=== PATIENT | female | born 1995 | race Caucasian/White ===

== ENCOUNTER 2016-08-27 23:03 | Emergency (ER) | payer MEDICAID ==
[2016-08-27 23:12] VITALS: BP 128/79; PULSE 94; RESP 16; TEMP 97.9; O2SAT 96
[2016-08-27 23:35] LABS: COLOR YELLOW; LEUKOCYTE ESTERASE,URINE 3+ (NEGATIVE); NITRITE,URINE NEGATIVE (NEGATIVE)
[2016-08-27] MEDS ORDERED: CEPHALEXIN 500MG PREPACK#4 BTL TAKEHOME ONE (23:37)
[2016-08-27] MEDS ORDERED: CEPHALEXIN 500 MG CAP PO ONE (23:37)
--- NOTE | 2016-08-27 23:37 | EDPHY ---
H & P Stated Complaint: burning with urination, suprapubic pain x2d, nausea Time Seen by Provider: 08/27/16 23:36 HPI/ROS: HPI CHIEF COMPLAINT: Dysuria HISTORY OF PRESENT ILLNESS: This patient very pleasant 20-year-old female, significant past medical history for anxiety and depression, and heroin abuse, presents to the emergency room with a 2 days of dysuria and suprapubic pain. She denies flank pain, vomiting high fever. She thinks she has a urinary tract infection. Past Medical History: Anxiety, depression, heroin abuse Past Surgical History: denies recent or pertinent surgical history Social History: Denies daily use of drugs alcohol tobacco products, lives locally in [place] Family History: Noncontributory ROS REVIEW OF SYSTEMS: A comprehensive 10 point review of systems is otherwise negative aside from elements mentioned in the history of present illness. Exam Constitutional triage nursing summary reviewed, vital signs reviewed, awake/ alert. Eyes normal conjunctivae and sclera, EOMI, PERRLA. HENT normal inspection, atraumatic, moist mucus membranes, no epistaxis, neck supple/ no meningismus, no raccoon eyes. Respiratory clear to auscultation bilaterally, normal breath sounds, no respiratory distress, no wheezing. Cardiovascular rate normal, regular rhythm, no murmur, no edema, distal pulses normal. Gastrointestinal soft, non-tender, no rebound, no guarding, normal bowel sounds, no distension, no pulsatile mass. Genitourinary no CVA tenderness. Musculoskeletal no midline vertebral tenderness, full range of motion, no calf swelling, no tenderness of extremities, no meningismus, good pulses, neurovascularly intact. Skin pink, warm, & dry, no rash, skin atraumatic. Neurologic awake, alert and oriented x 3, AAOx3, moves all 4 extremities equally, motor intact, sensory intact, CN II-XII intact, normal cerebellar, normal vision, normal speech. Psychiatric normal mood/affect. Heme/Lymph/Immune no lymphadenopathy. Differential Diagnosis: Includes but is not limited to in a particular order, UTI, cystitis, pyelonephritis Medical Decision Making: Patient here in emergency room appears well nontoxic afebrile no CVA pain no nausea or vomiting no abdominal pain except for some mild suprapubic pressure and dysuria think she has UTI. Will send a urinalysis. Abdomen is benign. Re-evaluation: Urinalysis result shows that she does have a UTI. She will be given 1st dose of Keflex here urine culture sent and Pyridium for home prescription for Keflex and Pyridium for home. She does understand if she develops any worsening symptoms includes worsening abdominal pain, fever, flank pain vomiting to return to the emergency room. Stay well-hydrated drink lots of fluids. Source: Patient - Personal History LMP (Females 10-55): 22-28 Days Ago Current Tetanus/Diphtheria Vaccine: Yes Current Tetanus Diphtheria and Acellular Pertussis (TDAP): Yes Tetanus Vaccine Date: ~2013 - Medical/Surgical History Hx Asthma: Yes Hx Chronic Respiratory Disease: No Hx Diabetes: No Hx Cardiac Disease: No Hx Renal Disease: No Hx Cirrhosis: No Hx Alcoholism: No Hx HIV/AIDS: No Hx Splenectomy or Spleen Trauma: No Other PMH: Exercise induced asthma, Heroin abuse, Vivien's, anemia, anxiety/ depression - Social History Smoking Status: Former smoker Constitutional: Initial Vital Signs Temperature (C) 36.6 C 08/27/16 23:04 Heart Rate 94 08/27/16 23:04 Respiratory Rate 16 08/27/16 23:04 Blood Pressure 128/79 H 08/27/16 23:04 O2 Sat (%) 96 08/27/16 23:04 O2 Delivery Mode Room Air Allergies/Adverse Reactions: epinephrine Allergy (Verified 08/27/16 23:13) gluten Allergy (Verified 08/27/16 23:13) peanut Allergy (Verified 08/27/16 23:13) Home Medications: Medication Instructions Recorded Bcp 08/27/16 Cephalexin [Keflex] 500 mg PO Q6H #28 cap 08/27/16 GABAPENTIN 08/27/16 KLONOPIN 08/27/16 Levothyroxine 08/27/16 Phenazopyridine HCl [Pyridium] 200 mg PO TID #6 tab 08/27/16 Suboxone 08/27/16 Medical Decision Making - Data Points Laboratory Results: 08/27/16 23:25 Urine Color YELLOW Urine Appearance HAZY Urine pH 5.0 (5.0-7.5) Ur Specific [place] 1.032 H (1.002-1.030) Urine Protein 1+ H (NEGATIVE) Urine Ketones TRACE H (NEGATIVE) Urine Blood NEGATIVE (NEGATIVE) Urine Nitrate NEGATIVE (NEGATIVE) Urine Bilirubin NEGATIVE (NEGATIVE) Urine Urobilinogen NEGATIVE EU EU (0.2-1.0) Ur Leukocyte Esterase 3+ H (NEGATIVE) Urine RBC 15-25 /hpf H /hpf (0-3) Urine WBC 50-182 /hpf H /hpf (0-3) Ur Epithelial Cells 1+ /lpf /lpf (NONE-1+) Urine Bacteria TRACE /hpf H /hpf (NONE SEEN) Urine Mucus TRACE /lpf /lpf (NONE-1+) Ur Culture Indicated? INDICATED H (NI) Urine Glucose NEGATIVE (NEGATIVE) Departure - Departure Disposition: Home, Routine, Self-Care Clinical Impression: Urinary tract infection Qualifiers: Urinary tract infection type: acute cystitis Hematuria presence: with hematuria Qualified Code(s): N30.01 - Acute cystitis with hematuria Condition: Good Instructions: Dysuria (ED), Urinary Tract Infection in Women (ED) Additional Instructions: 1. Stay well-hydrated drink lots of fluids. 2. take her Keflex prescription as prescribed 3. I have given you peridium this will turn your urine very [place]. Referrals: Patient,NotPresent [Primary Care Provider] - As per Instructions Prescriptions: Cephalexin [Keflex] 500 mg PO Q6H #28 cap Phenazopyridine HCl [Pyridium] 200 mg PO TID #6 tab
[2016-08-27 23:38] LABS: BACTERIA TRACE /hpf (NONE SEEN); MUCUS TRACE /lpf (NONE-1+); RBC,URINE 15-25 /hpf (0-3); WBC,URINE 50-182 /hpf (0-3)
[2016-08-28] MEDS ORDERED: PHENAZOPYRIDINE HCL 200 MG TAB PO ONE (00:01)
== END 2016-08-28 | disposition home or self-care (01) ==
DX: N30.01 Acute cystitis with hematuria (principal); B96.20 Unspecified Escherichia coli [E. coli] as the cause of diseases classified elsewhere; J45.909 Unspecified asthma, uncomplicated; Z87.891 Personal history of nicotine dependence; Z91.010 Allergy to peanuts

== ENCOUNTER 2017-10-01 17:45 | Emergency (ER) | payer MEDICAID ==
--- NOTE | 2017-10-01 18:20 | EDPHY ---
H & P Stated Complaint: episode of vaginal bleed after intercourse last night , pelvic pain since Time Seen by Provider: 10/01/17 18:19 HPI/ROS: HPI: This is a 21-year-old female who presents with Chief Complaint: episode of vaginal bleed after intercourse last night , pelvic pain since Location: Vaginal Quality: Trauma Duration: Last night Signs and Symptoms: no fever, no nausea, no vomiting, no hematemesis, no blood in stool, no abdominal bloating, no diarrhea, no back pain, no urinary symptoms , no vaginal discharge, no indigestion, no chest pain, no shortness of breath Timing: Acute, resolved Severity: Moderate Context: Patient reports that she was having vaginal sexual intercourse with her boyfriend yesterday evening when she felt a sudden, moderate, sharp pain in her vaginal canal followed by moderate amount of vaginal bleeding. She reports that she was not well lubricated at the time of penetration. Since that time she has some continued pain in the vaginal canal. Denies any difficulty urinating or defecating, she reports that there was only 1 episode of bleeding and none has reoccurred. LMP 1-2 weeks ago. Denies any concern for STDs; no vaginal discharge/pruritus. Modifying Factors: None Comment: ROS: see HPI Constitutional: No fever, no chills, no weight loss Eyes: No blurred vision Respiratory: No shortness of breath, no cough Cardiovascular: No chest pain, no palpitations Gastrointestinal: No nausea, no vomiting, no diarrhea, no hematemesis, no blood in stool Genitourinary: No dysuria, no blood in urine Extremities: No myalgias, no edema Neurologic: No weakness, no numbness Skin: No rashes, no petechiae Hematologic: No bruising, no bleeding MEDICAL/SURGICAL/SOCIAL HISTORY: Medical history: Exercise induced asthma, Heroin abuse, Vivien's, anemia, anxiety/depression Surgical history: Denies Social history: Student. CONSTITUTIONAL: awake and alert, no obvious distress HEENT: Atraumatic and normocephalic, PERRL, EOMI. Tympanic membranes clear. Oropharynx clear, no exudate and moist pink mucosa. Airway patent. No lymphadenopathy. No meningismus. Cardiovascular: Normal S1/S2, regular rate, regular rhythm, without murmur rub or gallop. PULMONARY/CHEST: Symmetrical and nontender. Clear to auscultation bilaterally. Good air movement. No accessory muscle usage. ABDOMEN: Soft, nondistended, nontender, no rebound, no guarding, no peritoneal signs, no masses or organomegaly. No CVAT. PELVIC: normal external genitalia, normal cervix, superficial abrasion noted at 12:00 position and vaginal canal; no deep laceration or active bleeding seen; cervical os was closed, no cervical motion tenderness, no adnexal mass, no discharge, no bleeding. The exam was performed with a contemporary or modern dancer. EXTREMITIES: 2/2 pulses, strength 5/5, no deformities, no clubbing, no cyanosis or edema. NEUROLOGICAL: no focal neuro deficits. GCS 15. SKIN: Warm and dry, no erythema. no rash. Good capillary refill. Source: Patient Exam Limitations: No limitations - Personal History LMP (Females 10-55): 8-14 Days Ago Current Tetanus Diphtheria and Acellular Pertussis (TDAP): Yes Tetanus Vaccine Date: ~2013 - Medical/Surgical History Hx Asthma: Yes Hx Chronic Respiratory Disease: No Hx Diabetes: No Hx Cardiac Disease: No Hx Renal Disease: No Hx Cirrhosis: No Hx Alcoholism: No Hx HIV/AIDS: No Hx Splenectomy or Spleen Trauma: No Other PMH: Exercise induced asthma, Heroin abuse, Vivien's, anemia, anxiety/ depression - Social History Smoking Status: Former smoker Constitutional: Initial Vital Signs Temperature (C) 36.8 C 10/01/17 17:54 Heart Rate 88 10/01/17 17:54 Respiratory Rate 16 10/01/17 17:54 Blood Pressure 132/59 H 10/01/17 17:54 O2 Sat (%) 97 10/01/17 17:54 O2 Delivery Mode Room Air Allergies/Adverse Reactions: epinephrine Allergy (Verified 08/27/16 23:13) gluten Allergy (Verified 08/27/16 23:13) peanut Allergy (Verified 08/27/16 23:13) Home Medications: Medication Instructions Recorded Bcp 08/27/16 GABAPENTIN 08/27/16 KLONOPIN 08/27/16 Levothyroxine 08/27/16 Suboxone 08/27/16 Ambien 10/01/17 Medical Decision Making ED Course/Re-evaluation: Labs and pelvic exam ordered Superficial abrasion seen on pelvic exam Patient has politely declined pelvic ultrasound as she is reassured that there is not a significant laceration. Labs reviewed and stable H&H. Advised pelvic rest This patient was seen under the supervision of my secondary supervising physician. I evaluated care for this patient independently. Differential Diagnosis: Differential diagnosis includes but is not limited to dyspareunia, cervicitis, vaginal tear. - Data Points Laboratory Results: Laboratory Results 10/01/17 18:29 10/01/17 18:29 10/01/17 10/01/17 10/01/17 18:29 18:29 18:29 WBC 4.16 10^3/uL 10^3/uL (3.80-9.50) RBC 4.32 10^6/uL 10^6/uL (4.18-5.33) Hgb 13.8 g/dL g/dL (12.6-16.3) Hct 38.9 % % (38.0-47.0) MCV 90.0 fL fL (81.5-99.8) MCH 31.9 pg pg (27.9-34.1) MCHC 35.5 g/dL g/dL (32.4-36.7) RDW 11.3 % L % (11.5-15.2) Plt Count 192 10^3/uL 10^3/uL (150-400) MPV 8.9 fL fL (8.7-11.7) Neut % (Auto) 45.5 % % (39.3-74.2) Lymph % (Auto) 47.1 % H % (15.0-45.0) [place] % (Auto) 5.0 % % (4.5-13.0) Eos % (Auto) 1.7 % % (0.6-7.6) Baso % (Auto) 0.5 % % (0.3-1.7) Nucleat RBC Rel Count 0.0 % % (0.0-0.2) Absolute Neuts (auto) 1.89 10^3/uL 10^3/uL (1.70-6.50) Absolute Lymphs (auto) 1.96 10^3/uL 10^3/uL (1.00-3.00) Absolute Monos (auto) 0.21 10^3/uL L 10^3/uL (0.30-0.80) Absolute Eos (auto) 0.07 10^3/uL 10^3/uL (0.03-0.40) Absolute Basos (auto) 0.02 10^3/uL 10^3/uL (0.02-0.10) Absolute Nucleated RBC 0.00 10^3/uL 10^3/uL (0-0.01) Immature Gran % 0.2 % % (0.0-1.1) Immature Gran # 0.01 10^3/uL 10^3/uL (0.00-0.10) Sodium 141 mEq/L mEq/L (135-145) Potassium 3.5 mEq/L mEq/L (3.5-5.2) Chloride 105 mEq/L mEq/L (97-110) Carbon Dioxide 25 mEq/l mEq/l (22-31) Anion Gap 11 mEq/L mEq/L (8-16) BUN 16 mg/dL mg/dL (7-23) Creatinine 0.8 mg/dL mg/dL (0.6-1.0) Estimated GFR > 60 Glucose 99 mg/dL mg/dL (70-100) Calcium 9.3 mg/dL mg/dL (8.5-10.4) Beta HCG, Qual NEGATIVE Departure - Departure Disposition: Home, Routine, Self-Care Clinical Impression: Vaginal abrasion Qualifiers: Encounter type: initial encounter Qualified Code(s): S30.814A - Abrasion of vagina and vulva, initial encounter Condition: Good Instructions: Abrasion (ED), Pelvic Rest (ED) Additional Instructions: Please observe pelvic rest for the next 7-10 days. Take Tylenol 650 mg every 4 hours and/or Ibuprofen 600 mg every 8 hours with food as needed for pain. Referrals: Nano Jimenez MD [Primary Care Provider] - 5-7 days, if not improved
[2017-10-01 18:37] LABS: PLATELET COUNT 192 10^3/uL (150-400)
[2017-10-01 19:45] VITALS: BP 99/67
== END 2017-10-01 19:45 | disposition home or self-care (01) ==
DX: S30.814A Abrasion of vagina and vulva, initial encounter (principal); J45.909 Unspecified asthma, uncomplicated; Z87.891 Personal history of nicotine dependence; Z91.010 Allergy to peanuts; X58.XXXA Exposure to other specified factors, initial encounter

== ENCOUNTER 2017-10-27 18:30 | Emergency (ER) | payer MEDICAID ==
[2017-10-27 18:39] VITALS: BP 123/39
--- NOTE | 2017-10-27 18:45 | EDPHY ---
H & P Stated Complaint: uti sx since last night Source: Patient Exam Limitations: No limitations - Personal History LMP (Females 10-55): 15-21 Days Ago Current Tetanus Diphtheria and Acellular Pertussis (TDAP): Yes Tetanus Vaccine Date: ~2013 - Medical/Surgical History Hx Asthma: No Hx Chronic Respiratory Disease: No Hx Diabetes: No Hx Cardiac Disease: No Hx Renal Disease: No Hx Cirrhosis: No Hx Alcoholism: No Hx HIV/AIDS: No Hx Splenectomy or Spleen Trauma: No Other PMH: Exercise induced asthma, Heroin abuse, Vivien's, anemia, anxiety/ depression, - Social History Smoking Status: Former smoker Time Seen by Provider: 10/27/17 18:44 HPI/ROS: HPI: This is a 21-year-old female who presents with Chief Complaint: Dysuria Location:gu Quality: Dysuria Duration: Since last night Signs and Symptoms: no fever, no nausea, no vomiting, no hematemesis, no blood in stool, no abdominal bloating, no diarrhea, no back pain, + urinary symptoms, no vaginal discharge/bleeding, no indigestion, no chest pain, no shortness of breath Timing: Acute, every time she has to urinate Severity: Moderate Context: Patient presents with complaints of burning with urination and urinary frequency since last night. LMP 2-3 weeks ago. She reports that she is sexually active. Last urinary tract infection was approximately 1-2 years ago. No history of kidney stones/pyelonephritis. Patient denies fever/back pain/ abdominal pain/nausea/vomiting/vaginal bleeding/vaginal discharge. She is eating and drinking normally. Modifying Factors: None Comment: ROS: see HPI Constitutional: No fever, no chills, no weight loss Eyes: No blurred vision Respiratory: No shortness of breath, no cough Cardiovascular: No chest pain, no palpitations Gastrointestinal: No nausea, no vomiting, no diarrhea, no hematemesis, no blood in stool Genitourinary: + dysuria, no blood in urine Extremities: No myalgias, no edema Neurologic: No weakness, no numbness Skin: No rashes, no petechiae Hematologic: No bruising, no bleeding MEDICAL/SURGICAL/SOCIAL HISTORY: Medical history: Exercise induced asthma, Heroin abuse, Vivien's, anemia, anxiety/depression Surgical history: Placentia teeth removal Social history: Family history noncontributory. CONSTITUTIONAL: Extremely well-appearing young adult white female, significant other at bedside, awake and alert, no obvious distress HEENT: Atraumatic and normocephalic, PERRL, EOMI. Nares patent; no rhinorrhea; no nasal mucosal edema. Tympanic membranes clear. Oropharynx clear, no exudate and moist pink mucosa. Airway patent. No lymphadenopathy. No meningismus. Cardiovascular: Normal S1/S2, regular rate, regular rhythm, without murmur rub or gallop. PULMONARY/CHEST: Symmetrical and nontender. Clear to auscultation bilaterally. Good air movement. No accessory muscle usage. ABDOMEN: Soft, nondistended, nontender, no rebound, no guarding, no peritoneal signs, no masses or organomegaly. No CVAT. EXTREMITIES: 2/2 pulses, strength 5/5, no deformities, no clubbing, no cyanosis or edema. NEUROLOGICAL: no focal neuro deficits. GCS 15. SKIN: Warm and dry, no erythema. no rash. Good capillary refill. (Ana Montanez) Constitutional: Initial Vital Signs Temperature (C) 37.1 C 10/27/17 18:36 Heart Rate 90 10/27/17 18:36 Respiratory Rate 18 10/27/17 18:36 Blood Pressure 123/39 H 10/27/17 18:36 O2 Sat (%) 97 10/27/17 18:36 O2 Delivery Mode Room Air Allergies/Adverse Reactions: epinephrine Allergy (Verified 08/27/16 23:13) gluten Allergy (Verified 08/27/16 23:13) peanut Allergy (Verified 08/27/16 23:13) Home Medications: Medication Instructions Recorded Bcp 08/27/16 GABAPENTIN 08/27/16 KLONOPIN 08/27/16 Levothyroxine 08/27/16 Suboxone 08/27/16 Ambien 10/01/17 Nitrofurantoin Macrobid [Macrobid] 100 mg PO BID #14 cap 10/27/17 Medical Decision Making ED Course/Re-evaluation: Urinalysis shows early signs of infection; sent for urine culture; given Macrobid and Pyridium Vital signs reviewed and stable. No systemic signs. Abdomen soft and nontender. Doubt surgical abdomen. This patient was seen under the supervision of my secondary supervising physician. I evaluated care for this patient independently. (Ana Montanez) I did not see this patient while she was in the emergency department. However her care was discussed with the PA while the patient was in the department. I agree with treatment plan and management (Morales Romano) Differential Diagnosis: Differential diagnosis includes but is not limited to pelvic inflammatory disease, bacterial vaginosis, urinary tract infection, dysuria, cystitis, pyelonephritis. (Ana Montanez) - Data Points Laboratory Results: 10/27/17 18:40 Urine Color [place] Urine Appearance HAZY Urine pH 7.0 (5.0-7.5) Ur Specific Max 1.025 (1.002-1.030) Urine Protein NEGATIVE (NEGATIVE) Urine Ketones NEGATIVE (NEGATIVE) Urine Blood NEGATIVE (NEGATIVE) Urine Nitrate NEGATIVE (NEGATIVE) Urine Bilirubin NEGATIVE (NEGATIVE) Urine Urobilinogen 2.0 EU H EU (0.2-1.0) Ur Leukocyte Esterase TRACE H (NEGATIVE) Urine RBC 1-3 /hpf /hpf (0-3) Urine WBC 10-15 /hpf H /hpf (0-3) Ur Epithelial Cells 4+ /lpf H /lpf (NONE-1+) Urine Bacteria 1+ /hpf H /hpf (NONE SEEN) Urine Mucus TRACE /lpf /lpf (NONE-1+) Urine Glucose NEGATIVE (NEGATIVE) Medications Given: Discontinued Medications Nitrofurantoin Macrocrystals (Macrobid) 100 mg PO EDNOW ONE PRN Reason: Protocol Stop: 10/27/17 19:15 Last Admin: 10/27/17 19:25 Dose: 100 mg Phenazopyridine HCl (Pyridium) 200 mg PO EDNOW ONE Stop: 10/27/17 19:15 Last Admin: 10/27/17 19:25 Dose: 200 mg Departure - Departure Disposition: Home, Routine, Self-Care Clinical Impression: Acute lower UTI (urinary tract infection) Condition: Good Instructions: Nitrofurantoin Combination (By mouth), Urinary Tract Infection in Women (ED) Additional Instructions: Consume a minimum of 8-10 glasses of water or electrolyte fluid replacement drinks that include Gatorade, Powerade, Pedialyte. Please do not have sexual intercourse or take a bath for 7 days. Take Macrobid twice a day x7 days. Do not skip a dose and do not miss a dose. Pyridium was given to you today that will help with the dysuria symptoms. Please do not be concerned if your urine may turn an orangish color. Return to the ER immediately if you experience new, continued or worsening abdominal pain, fevers/chills, inability to tolerate oral intake, new pain, or any other symptoms that concern you. Referrals: Nano Jimenez MD [Primary Care Provider] - 3-4 days, if not improved Prescriptions: Nitrofurantoin Macrobid [Macrobid] 100 mg PO BID #14 cap
[2017-10-27] MEDS ORDERED: PHENAZOPYRIDINE HCL 200 MG TAB PO ONE (19:14)
[2017-10-27] MEDS ORDERED: NITROFURANTOIN MACROBID 100 MG CAP PO ONE (19:14)
== END 2017-10-27 19:20 | disposition home or self-care (01) ==
DX: N39.0 Urinary tract infection, site not specified (principal); B96.20 Unspecified Escherichia coli [E. coli] as the cause of diseases classified elsewhere; J45.909 Unspecified asthma, uncomplicated; Z87.891 Personal history of nicotine dependence; Z91.010 Allergy to peanuts

== ENCOUNTER 2017-11-15 13:14 | Emergency (ER) | payer MEDICAID ==
[2017-11-15 13:20] VITALS: BP 90/80
--- NOTE | 2017-11-15 14:16 | EDPHY ---
H & P Time Seen by Provider: 11/15/17 13:25 HPI/ROS: CHIEF COMPLAINT: Vaginal discharge, right eye irritation HISTORY OF PRESENT ILLNESS: 21-year-old female presents to the emergency department complaining of thick, white which she describes as "cottage cheese looking" vaginal discharge for last few days. The patient was recently seen in the emergency department and about 1 month ago for urinary tract infection and treated with antibiotics. Those symptoms had completely resolved but she thought taking the antibiotic have predisposed her to a yeast infection. She has had these in the past. She is not concerned about sexually transmitted infections. Her partner who is at bedside has no symptoms or concerns. She is also complaining of some irritation in the right eye. She denies foreign body sensation or trauma. Denies symptoms in the left eye. No fevers or chills. No abdominal pain. No back pain. REVIEW OF SYSTEMS: Constitutional: No fever, no chills. Eyes: No double or blurry vision. ENT: No sore throat. Respiratory: No cough, no shortness of breath. Cardiac: No chest pain. Gastrointestinal: No abdominal pain, vomiting or diarrhea. Genitourinary: Vaginal discharge as above. No dysuria. Musculoskeletal: No neck or back pain. Skin: No rashes. Neurological: No headache. Past Medical/Surgical History: negative Social History: Single Smoking Status: Former smoker Physical Exam: General Appearance: Alert, no distress. Afebrile. Eyes: Pupils equal and round. Extraocular motions are all intact. No scleral injection. No visible foreign body. No drainage. ENT: Mouth: Mucous membranes moist. Respiratory: No wheezing, rhonchi, or rales, lungs are clear to auscultation. Cardiovascular: Regular rate and rhythm. Gastrointestinal: Abdomen is soft and nontender, no masses, no rebound or guarding, bowel sounds normal. Genitourinary: Deferred Neurological: Alert and oriented x 3, cranial nerves II through XII grossly intact Skin: Warm and dry, no rashes. Musculoskeletal: Nontender to palpate along the cervical, thoracic or lumbar spine. Neck is supple. Extremities: Full range of motion and no peripheral edema. Psychiatric: Patient is oriented X 3, there is no agitation. Constitutional: Initial Vital Signs Temperature (C) 37 C 11/15/17 13:17 Heart Rate 79 11/15/17 13:17 Respiratory Rate 18 11/15/17 13:17 Blood Pressure 90/80 L 11/15/17 13:17 O2 Sat (%) 97 11/15/17 13:17 O2 Delivery Mode Room Air Allergies/Adverse Reactions: epinephrine Allergy (Verified 11/15/17 13:16) gluten Allergy (Verified 11/15/17 13:16) peanut Allergy (Verified 11/15/17 13:16) Home Medications: Medication Instructions Recorded Bcp 08/27/16 GABAPENTIN 08/27/16 KLONOPIN 08/27/16 Levothyroxine 08/27/16 Suboxone 08/27/16 Ambien 10/01/17 Fluconazole [Diflucan (*)] 150 mg PO ONCE #2 tab 11/15/17 Medical Decision Making ED Course/Re-evaluation: 21-year-old female presents with white vaginal discharge in itching. Patient thinks that she has a yeast infection. She is not concerned about sexually transmitted infection. She declined pelvic examination. I think this is reasonable. She will be treated with Diflucan which she has taken in the past. Her right eye does not reveal a signs of conjunctivitis. I explained that this could be allergic conjunctivitis. I see no evidence of retained foreign body. She may try [id number] artificial tears Differential Diagnosis: Including but not limited to vaginal candidiasis, sexually transmitted infection , urinary tract infection, pyelonephritis Departure - Departure Disposition: Home, Routine, Self-Care Clinical Impression: Vaginal candidiasis, Irritation of right eye Condition: Good Instructions: Yeast Infection (ED) Additional Instructions: Diflucan as directed. Artificial tears in her right eye as discussed. Return to the emergency department if you developed abdominal pain, concerns about sexually transmitted infection, or if you feel worse in any way. Referrals: Nano Jimenez MD [Primary Care Provider] - 3-4 days, if not improved Prescriptions: Fluconazole [Diflucan (*)] 150 mg PO ONCE #2 tab
== END 2017-11-15 14:15 | disposition home or self-care (01) ==
DX: B37.3 Candidiasis of vulva and vagina (principal); H57.8 Other specified disorders of eye and adnexa; Z87.891 Personal history of nicotine dependence; Z91.010 Allergy to peanuts